=== PATIENT | male | born 1990 | race Caucasian/White ===

== ENCOUNTER 2017-07-30 18:51 | Emergency (ER) | payer BC ==
[~2017-07-30] VITALS: Ht 165.1 cm; Wt 72.0 kg
[2017-07-30 19:36] VITALS: BP 178/118; PULSE 85; RESP 16; TEMP 98.7; O2SAT 99
--- NOTE | 2017-07-30 21:39 | RADRPT ---
EXAM DATE/TIME: 07/30/2017 20:22 [place] COMPARISON: No previous studies available for comparison. INDICATIONS : Left scrotal pain. MEDICAL HISTORY : ADHD. SURGICAL HISTORY : None. ENCOUNTER: Initial ACUITY: 1 day PAIN SCORE: 2/10 LOCATION: Bilateral scrotum. MEASUREMENTS: RIGHT TESTICLE: 5.6 x 3.3 x 2.9cm LEFT TESTICLE: 5.3 x 3.5 x 3.3cm FINDINGS: RIGHT TESTICLE: Homogeneous echotexture without intra or extratesticular mass. Blood flow is symmetric and within no rmal limits. No hydrocele or varicocele. Epididymis is within normal limits. LEFT TESTICLE: Homogeneous echotexture without intra or extratesticular mass. Blood flow is symmetric and within no rmal limits. No hydrocele or varicocele. Epididymis is within normal limits. SCROTUM: Within normal limits. CONCLUSION: Normal examination. Jonnie Li MD on July 30, 2017 at 21:37 Board Certified Radiologist. This report was verified electronically.
[2017-07-30] MEDS ORDERED: CIPR-9 PO (21:49)
[2017-07-30] MEDS ORDERED: DICL75TA PO (21:49)
--- NOTE | 2017-07-30 21:51 | PD ---
HPI Chief Complaint: Complaint Time Seen by Provider: 19:51 Travel History International Travel<30 days: No Contact w/Intl Traveler<30days: No Traveled to known affect area: No History of Present Illness HPI 26-year-old male presents to the ED for evaluation of left testicular pain. Patient was seen at the [facility] for evaluation of left testicular pain. Patient had a UA and GC and chlamydia test done and was sent here for evaluation of an ultrasound. Dr. Hernandez had received the transfer call. Patient essentially here to get ultrasound done. He states that the pain started this morning. Please refer to the previous providers note. PFSH Past Medical History ADHD: Yes Immunizations Current: Yes Tetanus Vaccination: Unknown Influenza Vaccination: No Social History Alcohol Use: Yes (occasional) Tobacco Use: No Substance Use: No Allergies-Medications (Allergen,Severity, Reaction): Coded Allergies: No Known Allergies (Unverified , 07/30/17) Reported Meds & Prescriptions Reported Meds & Active Scripts Active Diclofenac Sodium DR (Diclofenac Sodium) 75 Mg Tabdr 75 Mg PO BID PRN Cipro (Ciprofloxacin HCl) 500 Mg Tab 500 Mg PO BID 10 Days Review of Systems Except as stated in HPI: all other systems reviewed are Neg Physical Exam Narrative GENERAL: SKIN: Warm and dry. HEAD: Atraumatic. Normocephalic. EYES: Pupils equal and round. No scleral icterus. No injection or drainage. ENT: No nasal bleeding or discharge. Mucous membranes pink and moist. Tongue is midline. No uvula deviation. NECK: Trachea midline. No JVD. CARDIOVASCULAR: Regular rate and rhythm. No murmurs, S3, S4. RESPIRATORY: No accessory muscle use. Clear to auscultation. Breath sounds equal bilaterally. GASTROINTESTINAL: Abdomen soft, non-tender, nondistended. Hepatic and splenic margins not palpable. Genital: Patient has reproducible pain on the posterior aspect of the testicle but no obvious swelling or deformity. Seen with nurse present. MUSCULOSKELETAL: Extremities without clubbing, cyanosis, or edema. No obvious deformities. Full range of motion of the upper and lower extremities bilaterally. 2+ pulses bilaterally. NEUROLOGICAL: Awake and alert. No obvious cranial nerve deficits. Motor grossly within normal limits. Five out of 5 muscle strength in the arms and legs. Normal speech. PSYCHIATRIC: Appropriate mood and affect; insight and judgment normal. Data Data Last Documented VS Vital Signs Date Time Temp Pulse Resp B/P (MAP) Pulse Ox O2 Delivery O2 Flow Rate FiO2 07/30/17 19:36 98.7 85 16 178/118 (138) 99 Orders Orders Us Testicles W Doppler (07/30/17 ) Ed Discharge Order (07/30/17 21:49) MDM Medical Decision Making Medical Screen Exam Complete: Yes Emergency Medical Condition: Yes Medical Record Reviewed: Yes Interpretation(s) Last Impressions Scrotum Ultrasound 07/30/17 0000 Signed Impressions: Service Date/Time: July 20:22 - CONCLUSION: Normal examination. Jonnie Li MD UA negative Differential Diagnosis Testicular pain versus torsion versus epypidimitis versus muscle strain Narrative Course 26-year-old male who presents to the ED for evaluation of testicular pain. Patient was properly examined and was found to have signs and symptoms consistent appears to be testicular pain. Ultrasound was ordered. Ultrasound was negative for torsion or any sign of acute disease. My attending Dr. Trotter recommends starting patient on Cipro to cover for epididymitis. GC and Chlamydia still pending. Patient has no other symptoms. Urine was clean. At this time patient will be discharged with instructions to follow-up with PCP. See ED worsening symptoms. Patient asked if he will be able to do diving tomorrow. My attending Dr Trotter states that it will be up to the patient and how he feels if he can do it or not. He does not see a reason why not. This was told to the patient and he agrees. Diagnosis Primary Impression: Testicular pain, left Additional Impression: Epididymitis, left Patient Instructions: General Instructions Additional Instructions: Motrin or Tylenol for pain. Take medication as prescribed. Follow-up with PCP. See ED worsening symptoms. Ice or warm compresses as needed. Med/Other Pt SpecificInfo: Prescription(s) given Scripts Diclofenac Sodium DR (Diclofenac Sodium DR) 75 Mg Tabdr 75 MG PO BID Y for PAIN SCALE 1 TO 10, #30 TAB 0 Refills Prov: Chirag Trotter MD 07/30/17 Ciprofloxacin (Cipro) 500 Mg Tab 500 MG PO BID for Infection for 10 Days, #20 TAB 0 Refills Prov: Chirag Trotter MD 07/30/17 Disposition: 01 DISCHARGE HOME Condition: Stable Tyler Monae Jul 30, 2017 21:51
[2017-07-30 22:06] VITALS: BP 134/94; TEMP 98.6
== END 2017-07-30 22:17 | disposition home or self-care (01) ==
LOC: NEPE 18:51
DX: N50.812 Left testicular pain (principal); N45.1 Epididymitis; F90.9 Attention-deficit hyperactivity disorder, unspecified type
CPT/HCPCS: 76870; 81001; 87491; 87591; 93975; 99283; 99284